=== PATIENT | female | born 1935 | race Caucasian/White ===

== ENCOUNTER → 2017-01-23 | Outpatient (CLI) | payer MEDICARE, OTHER | END | disposition home or self-care (01) | LOC: PCVCCLINIC 11:13 | PROVIDERS: ATTEND Internal Medicine | DX: I10 Essential (primary) hypertension (principal); E78.5 Hyperlipidemia, unspecified; I65.23 Occlusion and stenosis of bilateral carotid arteries; R07.9 Chest pain, unspecified; R00.0 Tachycardia, unspecified; Z79.899 Other long term (current) drug therapy | CPT/HCPCS: 80061; 93005; G0463 ==

== ENCOUNTER → 2017-07-25 | Outpatient (CLI) | payer MEDICARE | END | disposition home or self-care (01) | LOC: PCVCCLINIC 10:09 | PROVIDERS: ATTEND Internal Medicine | DX: I10 Essential (primary) hypertension (principal); R60.9 Edema, unspecified; R07.82 Intercostal pain; E78.5 Hyperlipidemia, unspecified; I65.23 Occlusion and stenosis of bilateral carotid arteries; E11.9 Type 2 diabetes mellitus without complications; R94.31 Abnormal electrocardiogram [ECG] [EKG]; Z79.899 Other long term (current) drug therapy; Z79.84 Long term (current) use of oral hypoglycemic drugs | CPT/HCPCS: 80061; 93005; G0463 ==

== ENCOUNTER → 2017-07-29 | Outpatient (CLI) | payer MEDICARE ==
--- NOTE | 2017-07-29 16:23 | PCVCIMAG ---
APPROVED REPORT Study performed: 07/29/2017 13:14:40 EXAM: Comprehensive 2D, Doppler, and color-flow Echocardiogram Patient Location: Echo lab Room #: 2Status: routine BSA: 2.09 HR: 73 bpmBP: 122/60 mmHg Rhythm: NSR Risk Factors: Cardiac Risk Factors: SOB,fatigue,fever,edema,htn, dm, Indications Diabetes Fatigue Fever Peripheral Edema 2D Dimensions LVEF(%): 54.74 (>50%) IVSd: 9.45 (7-11mm)LVOT Diam: 19.49 (18-24mm) LVDd: 36.81 mm PWd: 7.23 (7-11mm)Ascending Ao: 35.92 (22-36mm) LVDs: 26.58 (25-40mm) Left Atrium: 29.89 (27-40mm) Aortic Root: 33.07 mm LV Single Plane 4CH: 57.98 % LV Single Plane 2CH: 61.77 %Quick's LVEF: 59.88 % Biplane EF: 59.0 % Volumes Left Atrial Volume (Systole) Single Plane 4CH: 45.23 mLSingle Plane 2CH: 32.19 mL Aortic Valve AoV Peak Marco.: 1.63 m/s AO Peak Gr.: 10.62 mmHgLVOT Max P.07 mmHg LVOT Max V: 1.01 m/s RUDY Vmax: 1.85 cm2 AI Vmax: 2.97 m/s AI [place]: 1.31 m/s2 AI PHT: 655.53 ms Mitral Valve E/A Ratio: 1.0 MV Decel. Time: 211.81 ms MV E Max Marco.: 0.65 m/s MV A Marco.: 0.66 m/s IVRT: 152.25 ms Pulmonary Valve PV Peak Marco.: 0.94 m/sPV Peak Gr.: 3.53 mmHg Pulmonary Vein P Vein S: 0.70 m/sP Vein A: 0.33 m/s P Vein D: 0.31 m/sP Vein A Dur.: 107.3 msec P Vein S/D Ratio: 2.26 Tricuspid Valve TR Peak Marco.: 1.07 m/s TR Peak Gr.: 4.62 mmHg TV Vmax: 0.48 m/s Left Ventricle The left ventricle is normal size. There is normal LV segmental wall motion. There is normal left ventricular wall thickness. Left ventricular systolic function is normal. The left ventricular ejection fraction is within the normal range. LVEF is 55-60%. Grade I - abnormal relaxation pattern. Right Ventricle The right ventricle is normal size. The right ventricular systolic function is normal. Atria The left atrium size is normal. The right atrium size is normal. Aortic Valve Mild aortic valve sclerosis, trileaflet. Mild aortic regurgitation. There is no aortic valvular stenosis. Mitral Valve The mitral valve is normal in structure. There is no mitral valve regurgitation noted. No evidence of mitral valve stenosis. Tricuspid Valve The tricuspid valve is normal in structure. There is no tricuspid valve regurgitation noted. Pulmonic Valve The pulmonary valve is normal in structure. There is no pulmonic valvular regurgitation. Great Vessels The aortic root is normal in size. The ascending aorta is normal in size. IVC is normal in size and collapses with >50% inspiration Pericardium There is no pericardial effusion. There is no pleural effusion. <Conclusion> Left ventricular systolic function is normal. There is normal LV segmental wall motion. LVEF is 55-60%. Grade I diastolic dysfunction Mild aortic valve sclerosis, trileaflet. Mild aortic regurgitation, no stenosis The mitral valve is normal in structure. No mitral valve regurgitation noted. Pulmonary artery pressure could not be reliably ascertained There is no pericardial effusion.
== END | disposition home or self-care (01) ==
LOC: PCVCIMAG 12:58
PROVIDERS: ATTEND Internal Medicine
DX: I35.2 Nonrheumatic aortic (valve) stenosis with insufficiency (principal); E11.9 Type 2 diabetes mellitus without complications; R53.83 Other fatigue; R50.9 Fever, unspecified; R60.9 Edema, unspecified
CPT/HCPCS: 93306

== ENCOUNTER → 2017-08-04 | Outpatient (CLI) | payer MEDICARE | END | disposition home or self-care (01) | LOC: PCVCCLINIC 11:18 | PROVIDERS: ATTEND Internal Medicine | DX: I65.23 Occlusion and stenosis of bilateral carotid arteries (principal); R60.9 Edema, unspecified; R06.02 Shortness of breath; E78.00 Pure hypercholesterolemia, unspecified; Z79.899 Other long term (current) drug therapy | CPT/HCPCS: 80061; 93005; G0463 ==

== ENCOUNTER → 2018-03-23 | Outpatient (CLI) | payer MEDICARE | END | disposition home or self-care (01) | LOC: PCVCCLINIC 15:03 | DX: R00.0 Tachycardia, unspecified (principal); E78.00 Pure hypercholesterolemia, unspecified; I65.23 Occlusion and stenosis of bilateral carotid arteries; I10 Essential (primary) hypertension; E78.5 Hyperlipidemia, unspecified; C25.9 Malignant neoplasm of pancreas, unspecified; E11.9 Type 2 diabetes mellitus without complications; Z79.4 Long term (current) use of insulin; Z79.899 Other long term (current) drug therapy | CPT/HCPCS: 80061; 93005; G0463 ==

== ENCOUNTER → 2018-10-21 | Outpatient (CLI) | payer MEDICARE | END | disposition home or self-care (01) | LOC: PCVCCLINIC 14:23 | PROVIDERS: ATTEND Internal Medicine | DX: I10 Essential (primary) hypertension (principal); R00.0 Tachycardia, unspecified; I65.23 Occlusion and stenosis of bilateral carotid arteries; E78.5 Hyperlipidemia, unspecified; C25.9 Malignant neoplasm of pancreas, unspecified; E11.9 Type 2 diabetes mellitus without complications; E78.00 Pure hypercholesterolemia, unspecified; E03.9 Hypothyroidism, unspecified; K21.9 Gastro-esophageal reflux disease without esophagitis; Z79.899 Other long term (current) drug therapy; Z79.4 Long term (current) use of insulin; Z88.8 Allergy status to other drugs, medicaments and biological substances | CPT/HCPCS: 36415; 80061; 93005; G0463 ==

== ENCOUNTER → 2019-04-23 | Outpatient (CLI) | payer MEDICARE | END | disposition home or self-care (01) | LOC: PCVCCLINIC 14:40 | PROVIDERS: ATTEND Internal Medicine | DX: I10 Essential (primary) hypertension (principal); R00.0 Tachycardia, unspecified; I65.23 Occlusion and stenosis of bilateral carotid arteries; E78.5 Hyperlipidemia, unspecified; C25.9 Malignant neoplasm of pancreas, unspecified; E11.9 Type 2 diabetes mellitus without complications; I71.2 Thoracic aortic aneurysm, without rupture; Z79.4 Long term (current) use of insulin; Z88.2 Allergy status to sulfonamides | CPT/HCPCS: 36415; 80061; 93005; G0463 ==

== ENCOUNTER → 2019-04-27 | Outpatient (CLI) | payer MEDICARE ==
--- NOTE | 2019-04-27 10:03 | PCVCIMAG ---
APPROVED REPORT Study performed: 04/27/2019 08:59:32 EXAM: Comprehensive 2D, Doppler, and color-flow Echocardiogram Patient Location: Echo lab Status: routine BSA: 2.07 HR: 62 bpmBP: 140/70 mmHg Rhythm: NSR Other Information Study Quality: Good Risk Factors: Cardiac Risk Factors: HTN, Hyperlipidemia, DM, History of pancreatic cancer Indications Aortic Valve Disease Hypertension/HDD Hyperlipidemia 2D Dimensions IVSd: 10.16 (7-11mm)LVOT Diam: 18.92 (18-24mm) LVDd: 40.02 mm PWd: 8.70 (7-11mm)Ascending Ao: 39.49 (22-36mm) LVDs: 26.41 (25-40mm) Left Atrium: 37.50 (27-40mm) Aortic Root: 31.75 mm LV Single Plane 4CH: 61.50 % LV Single Plane 2CH: 71.57 % Biplane EF: 67.0 % Volumes Left Atrial Volume (Systole) Single Plane 4CH: 35.61 mLSingle Plane 2CH: 65.21 mL LA ESV Index: 23.00 mL/m2 Aortic Valve AoV Peak Marco.: 1.75 m/s AO Peak Gr.: 12.23 mmHg AO Mean Gr.: 5.97 mmHg AO V2 Mean: 1.14 m/s AO V2 VTI: 35.94 cm AI Vmax: 3.74 m/s AI [place]: 2.13 m/s2 AI PHT: 523.36 ms Mitral Valve E/A Ratio: 0.7 MV Decel. Time: 312.52 ms MV E Max Marco.: 0.73 m/s MV A Marco.: 0.98 m/s TDI E/Lateral E': 9.13E/Medial E': 10.43 Medial E' Marco.: 0.07 m/s Lateral E' Marco.: 0.08 m/s Pulmonary Vein P Vein S: 0.54 m/sP Vein A: 0.33 m/s P Vein D: 0.39 m/sP Vein A Dur.: 86.5 msec P Vein S/D Ratio: 1.38 Tricuspid Valve TR Peak Marco.: 2.33 m/s TR Peak Gr.: 21.80 mmHg Left Ventricle The left ventricle is normal size. There is normal LV segmental wall motion. There is normal left ventricular wall thickness. Left ventricular systolic function is normal. The left ventricular ejection fraction is within the normal range. LVEF is 65%. Mild diastolic dysfunction Right Ventricle The right ventricle is normal size. The right ventricular systolic function is normal. Atria The left atrium size is normal. The right atrium size is normal. Aortic Valve The aortic valve is trileaflet, mildly calcified. Mild aortic regurgitation. There is no aortic valvular stenosis. Mitral Valve The mitral valve is normal in structure. Trace mitral regurgitation. No evidence of mitral valve stenosis. Tricuspid Valve The tricuspid valve is normal in structure. Trace tricuspid regurgitation. Pulmonary artery pressure is 30 mmHg. Pulmonic Valve The pulmonary valve is normal in structure. There is no pulmonic valvular regurgitation. Great Vessels The aortic root is normal in size. The ascending aorta is mildly dilated (4.1cm). IVC is normal in size and collapses >50% with inspiration. Pericardium There is no pericardial effusion. <Conclusion> Left ventricular systolic function is normal. There is normal LV segmental wall motion. LVEF is 65%. Mild diastolic dysfunction The aortic valve is trileaflet, mildly calcified. Mild aortic regurgitation, no stenosis. The mitral valve is normal in structure. Trace mitral regurgitation. Trace tricuspid regurgitation. Pulmonary artery pressure of 30 mmHg. The ascending aorta is mildly dilated (4.1cm). There is no pericardial effusion.
== END | disposition home or self-care (01) ==
LOC: PCVCIMAG 08:47
PROVIDERS: ATTEND Internal Medicine
DX: I35.1 Nonrheumatic aortic (valve) insufficiency (principal); I71.2 Thoracic aortic aneurysm, without rupture; I10 Essential (primary) hypertension
CPT/HCPCS: 93306